=== PATIENT | female | born 1965 | race Caucasian/White ===

== ENCOUNTER 2022-06-11 11:27 | Emergency (ER) | payer OTHER, SELFPAY ==
[2022-06-11 11:45] VITALS: BP 146/77; PULSE 61; RESP 18; TEMP 37.1; O2SAT 98; BMI 29.3
--- NOTE | 2022-06-11 12:39 | ED_ITS ---
HPI - Abdominal Pain General Chief Complaint: Abdominal Pain Stated Complaint: Suspected diverticulitis Time Seen by Provider: 06/11/22 12:02 History of Present Illness HPI narrative: 56-year-old woman presenting to the emergency department with now 3rd day of left lower abdominal pain. She suspects diverticulitis as had similar occurrence in similar feeling in [address] imaging was done at that time. It sounds to been uncomplicated. Given conversation I suspect was treate d with ciprofloxacin and metronidazole. She has not had a fever. Does feel mildly nauseated nor today. No hematochezia and no melena. Pain with pressure or with ambulation. She has had regular bowel movements though none yet today. Did have a colonoscopy within the last 2 years confirming diverticular disease but apparently nothing else alarming. Status post appendectomy. Does not describe any dysuria or frequency. Related Data Home Medications Medication Instructions Recorded Confirmed citalopram 06/11/22 simvastatin 06/11/22 Allergies Allergy/AdvReac Type Severity Reaction Status Date / Time No Known Drug Allergies Allergy Verified 06/11/22 11:47 Review of Systems Status of ROS Reports: 10 or more systems reviewed and unremarkable except as noted in History and below [facility] Social History Smoking Status: Never smoker How often do you have a drink containing alcohol: monthly or less AUDIT-C Alcohol total score: 1 Non-prescribed substance use: marijuana (any form) Non-prescribed substance use details: thc [employer] Exam Narrative: Exam Narrative: Pleasant. Does seem rather uncomfortable. I did note her to be hunched over in the waiting room. Breathing easily. Oropharynx is moist. Lungs are clear. She is not splinting. Heart appears to be in a regular rhythm but bradycardic. I think there is also trace holosystolic murmur. Abdomen with normoactive bowel sounds is soft and quite tender in the left lower abdomen. Extremities are well perfused without edema. Skin warm dry without rash. Const: Vital Signs, click to edit/add: Vital Signs - 24 hr 06/11/22 11:45 Temperature 98.7 F Pulse Rate [Right Pulse Oximeter] 61 Respiratory Rate 18 Blood Pressure [Ri ght Upper Arm] 146/77 H Pulse Oximetry 98 Oxygen Delivery Me thod Room Air Documenting provider has reviewed patient's vital signs: yes Course Vital Signs Vital signs: Initial Vital Signs Temperature 98.7 F 06/11/22 11:45 Temperature Source Temporal Artery Scan 06/11/22 11:45 Pulse Rate 61 06/11/22 11:45 Respiratory Rate 18 06/11/22 11:45 Blood Pressure 146/77 H 06/11/22 11:45 Blood Pressure Mean 100 06/11/22 11:45 Blood Pressure Position Sitting 06/11/22 11:45 Pulse Oximetry 98 06/11/22 11:45 Oxygen Delivery Method Room Air 06/11/22 11:45 Vital Signs Temperature 98.7 F 06/11/22 11:45 Pulse Rate 61 06/11/22 11:45 Respiratory Rate 18 06/11/22 11:45 Blood Pressure 146/77 H 06/11/22 11:45 Pulse Oximetry 98 06/11/22 11:45 Oxygen Delivery Method Room Air 06/11/22 11:45 Temperature 98.7 F 06/11/22 11:45 Pulse Rate 61 06/11/22 11:45 Respiratory Rate 18 06/11/22 11:45 Blood Pressure 146/77 H 06/11/22 11:45 Pulse Oximetry 98 06/11/22 11:45 Oxygen Delivery Method Room Air 06/11/22 11:45 MDM - Abdominal Pain MDM Narrative Medical decision making narrative: History of similar presentation with normal vital signs and confirmed diverticulitis with CT. With Ms. Padilla clear that she does not want to be admitted and would prefer outpatient treatment if possible. tolerating oral intake and preferred abx not more active IV. Diverticulitis I think is likely. no sxs consistent with urinary tract issue otherwise. doubtful pelvic/ovarian matter. reasonable to attempt outpatient management. see pt discharge plan Discharge Plan Discharge Clinical Impression: Diverticulitis, Abdominal pain Patient Disposition: Home, Self-Care Condition: Stable Additional Instructions: Focus on hydration for now. Diluted juices, soup broths. Can begin advancing diet around 24 hours. Return for marked increase in pain, uncontrolled pain, repeated vomiting, associated fever. Can take ibuprofen for pain as well combined with any of the prescribed medications. Ciprofloxacin, metronidazole, ondansetron, Percocet from [facility]. Prescriptions: No Action simvastatin citalopram Stand Alone Forms: [employer] Info Instructions
== END 2022-06-11 13:51 | disposition home or self-care (01) ==
PROVIDERS: Emergency Provider Family Medicine
DX: K57.92 Diverticulitis of intestine, part unspecified, without perforation or abscess without bleeding (principal)
CPT/HCPCS: 99283